=== PATIENT | female | born 1970 | race Caucasian/White ===

== ENCOUNTER → 2020-04-02 15:51 | Outpatient (CLI) | payer BC, SELFPAY ==
--- NOTE | ~2020-04-02 | MM_ITS ---
EXAMINATION: MM screening [facility] BI [facility] HISTORY: Screening TECHNIQUE: Craniocaudal and mediolateral oblique 3-D tomosynthesis images were obtained and synthetic 2-D images were generated. CAD analysis was submitted and interpreted. COMPARISON: Comparison to multiple prior studies sequentially, with oldest reviewed study dated 12/19. BREAST PARENCHYMAL COMPOSITION: The breasts are heterogeneously dense, which may obscure small masses . FINDINGS: Stable benign-appearing mass upper inner quadrant of the right breast. There is no evidence of suspicious mass, calcification, or architectural distortion to suggest malignancy in either breas t. There has been no suspicious interval change. IMPRESSION: 1. No mammographic evidence of malignancy. 2. Recommend routine screening mammography in one year. BI-RADS Category 2: Benign finding(s). Reviewed, dictated and finalized at location A.
== END ==
PROVIDERS: PCP Family Medicine
DX: Z12.31 Encounter for screening mammogram for malignant neoplasm of breast (principal)
CPT/HCPCS: 77063; 77067

== ENCOUNTER → 2021-04-02 14:13 | Outpatient (CLI) | payer BC, SELFPAY ==
--- NOTE | ~2021-04-02 | MM_ITS ---
EXAMINATION: MM screening [facility] HISTORY: Screening TECHNIQUE: Craniocaudal and mediolateral oblique 3-D tomosynthesis images were obtained and synthetic 2-D images were generated. CAD analysis was submitted and interpreted. COMPARISON: Comparison to multiple prior studies sequentially, with oldest reviewed study dated 12/22. BREAST PARENCHYMAL COMPOSITION: The breasts are extremely dense, which lowers the sensitivity of mamm ography. FINDINGS: There is no evidence of suspicious mass, calcification, or architectural distortion to sugg est malignancy in either breast. There has been no suspicious interval change. IMPRESSION: 1. No mammographic evidence of malignancy. 2. Recommend routine screening mammography in one year. BI-RADS Category 1: Negative Reviewed, dictated and finalized at location A.
== END ==
PROVIDERS: PCP Family Medicine
DX: Z12.31 Encounter for screening mammogram for malignant neoplasm of breast (principal)
CPT/HCPCS: 77063; 77067

== ENCOUNTER → 2021-09-24 14:44 | Outpatient (CLI) | payer BC, SELFPAY ==
--- NOTE | ~2021-09-24 | DEXA_ITS ---
Bone Density Report Name: SHAWN BAIG Age: 51 Sex: Female Ethnicity: White Date of : 1970 Indication: postmenopausal; screening for osteoporosis; Referring Provider: CATERINA CAMARGO Study: Bone densitometry was performed. Exam Date: September 24, 2021 Accession number: [id number] Bone Density: Region BMD T-score Z-score Classification AP Spine (L1-L4) 0.842 -1.9 -0.9 Osteopenia Femoral Neck (Left) 0.644 -1.9 -0.9 Osteopenia Total Hip (Left) 0.751 -1.6 -1.0 Osteopenia Femoral Neck (Right) 0.653 -1.8 -0.8 Osteopenia Total Hip (Right) 0.764 -1.5 -0.9 Osteopenia Total Hip Mean 0.758 -1.6 -1.0 Osteopenia World Health Organization criteria for BMD impression classify patients as: Normal (T-score at or above -1.0), Osteopenia (T-score between -1.0 and -2.5), or Osteoporosis (T-score at or below -2.5). 10-year Fracture Risk(1): Major Osteoporotic Fracture 5.7% Hip Fracture 0.7% Reported Risk Factors: [place] (), Neck BMD=0.644, BMI=20.2 (1) FRAX(R) Version 3.08. Fracture probability calculated for an untreated patient. Fracture probability may be lower if the patient has received treatment. Clinical Information Provided by Patient: Has used the following medications: Vitamin D Patient maximum height was 67 Menopause Age: 49 No regular weight bearing exercise Drinks caffeinated beverages Onset of menses at age 11 Number of children 2 Impression: The patient has low bone mass, based on the Total Spine T-score. The patient has an estimated ten-year risk of hip fracture of 0.7% and an estimated ten-year risk of major fracture of 5.7%, based on the WHO FRAX algorithm. Discussion: BONE DENSITY IS LOW AT ONE OR MORE SKELETAL SITES. This patient's lowest T-score is low at one or more skeletal sites. It meets the World Health Organization's (WHO) criteria for ?low bone mass? (T-score between -1.0 and -2.5). The patient's 10-year risk of fracture as calculated by FRAX is less than the threshold where pharmacological therapy is recommended by the National Osteoporosis Foundation (NOF). However, all treatment decisions require clinical judgment and consideration of individual patient factors, including patient preferences, comorbidities, previous drug use, risk factors not captured in the FRAX model (e.g., frailty, falls, vitamin D deficiency, increased bone turnover, interval significant decline in bone density) and possible under or overestimation of fracture risk by FRAX. The patient should follow a healthful lifestyle (good nutrition with adequate calcium and vitamin D, and appropriate weight-bearing exercise). Follow-Up: Consider repeating this study in 2 to 3 years to reassess this patient's status, or sooner if there is some new clinical indication. Reported by: [facility] on 09/24/2021 3:21:0
== END ==
PROVIDERS: PCP Family Medicine; Visit Provider Family Medicine
DX: Z78.0 Asymptomatic menopausal state (principal); M85.89 Other specified disorders of bone density and structure, multiple sites
CPT/HCPCS: 77080

== ENCOUNTER → 2022-04-23 11:48 | Outpatient (CLI) | payer BC, SELFPAY ==
--- NOTE | ~2022-04-23 | MM_ITS ---
EXAMINATION: MM screening [facility] HISTORY: Screening TECHNIQUE: Craniocaudal and mediolateral oblique 3-D tomosynthesis images were obtained and synthetic 2-D images were generated. CAD analysis was submitted and interpreted. COMPARISON: Comparison to multiple prior studies sequentially, with oldest reviewed study dated 11/2016. BREAST PARENCHYMAL COMPOSITION: The breasts are heterogeneously dense, which may obscure small masses FINDINGS: There is no evidence of suspicious mass, calcification, or architectural distortion to sugg est malignancy in either breast. There has been no suspicious interval change. IMPRESSION: 1. No mammographic evidence of malignancy. 2. Recommend routine screening mammography in one year. BI-RADS Category 1: Negative Reviewed, dictated and finalized at location A.
== END ==
PROVIDERS: PCP Family Medicine
DX: Z12.31 Encounter for screening mammogram for malignant neoplasm of breast (principal)
CPT/HCPCS: 77063; 77067

== ENCOUNTER → 2023-05-27 12:22 | Outpatient (CLI) | payer OTHER, SELFPAY ==
--- NOTE | ~2023-05-27 | MM_ITS ---
EXAMINATION: MM screening [facility] HISTORY: Screening mammogram TECHNIQUE: Craniocaudal and mediolateral oblique 3-D tomosynthesis images were obtained and synthetic 2-D images were generated. CAD analysis was submitted and interpreted. COMPARISON: 04/23/2022, 04/02/2021, 04/02/2020 bilateral screening mammogram examinations BREAST PARENCHYMAL COMPOSITION: The breasts are heterogeneously dense, which may obscure small masses . FINDINGS: There is no evidence of suspicious mass, calcification, or architectural distortion to sugg est malignancy in either breast. There has been no suspicious interval change. IMPRESSION: 1. No mammographic evidence of malignancy. 2. Recommend routine screening mammography in one year. BI-RADS Category 1: Negative Reviewed, dictated and finalized at location A.
== END ==
PROVIDERS: PCP Family Medicine
DX: Z12.31 Encounter for screening mammogram for malignant neoplasm of breast (principal)
CPT/HCPCS: 77063; 77067

== ENCOUNTER 2023-10-03 11:12 | Outpatient (CLI) | payer OTHER, SELFPAY ==
--- NOTE | ~2023-10-03 | US_ITS ---
EXAMINATION: US pelvic complete w TV DATE: 10/03/2023 11:43 INDICATION: Right lower quadrant pain TECHNIQUE: Multiple transabdominal and endovaginal sonographic images of the pelvis were obtained. COMPARISON: None. FINDINGS: The uterus measures 6.8 x 2.9 x 4.6 cm. The endometrial complex measures 6 mm. There is an 8 mm hypoechoic area abutting the endometrial complex in the posterior uterine body, likely a small f ibroid. Bowel gas obscures clear visualization of the ovaries. No definite adnexal abnormality is jono ntified. There is no free fluid in the pelvis. IMPRESSION: 1. No sonographic correlate for the patient's symptoms. Reviewed, dictated and finalized at location L. MERCE ANALYST
== END 2023-10-03 11:13 ==
PROVIDERS: PCP Family Medicine
DX: R10.31 Right lower quadrant pain (principal)
CPT/HCPCS: 76830; 76856

== ENCOUNTER 2023-10-06 05:49 | Day surgery (SDC) | payer OTHER, SELFPAY ==
[2023-08-17 10:03] VITALS: BMI 20.5
[2023-09-19 12:06] VITALS: BMI 20.7
--- NOTE | 2023-10-05 11:21 | P.PNAN_ITS ---
Anes - Initial Pre Proc Eval Procedure: Operation Date: 10/06/23 07:30 Proposed Procedures p Diagnostic Colonoscopy - Rudolph Black MD Date/Time: 10/05/23 11:21 Surgeon: Rudolph Black MD Pre Op Diagnosis: Personal History of Colonic Polyps Patient Data Age: 53 Gender: F Height: 1.7 m Weight: 60 kg Allergies Allergy/AdvReac Type Severity Reaction Status Date / Time No Known Allergies Allergy Verified 10/06/23 06:23 Home Medications Medication Instructions Recorded Confirmed Type cholecalciferol (vitamin D3) 10 10 mcg PO DAILY #90 caps 11/03/20 10/06/23 Rx mcg (400 unit) capsule sodium,potassium,mag sulfates 17.5 See Rx Instructions PO .COMPLEX 08/17/23 10/06/23 Rx gram-3.13 gram-1.6 gram oral soln #354 mL (Suprep Bowel Prep Kit) simvastatin 10 mg tablet 10 mg PO DAILY #90 tabs 10/03/23 10/06/23 Rx Patient hx anesthesia problems: none Family hx anesthesia problems: none Results Review: All pre-operative results and documents have been reviewed as part of the pre- operative evaluation. [facility] Past Medical History Medical History Mixed hyperlipidemia Osteopenia Vitamin D deficiency Family History Family History Father Hypertension Grandparent Hypertension Family history of coronary artery disease Family history of malignant neoplasm of urinary bladder Diabetes mellitus Mother Family history of type 2 diabetes mellitus Other Family history of elevated blood lipids Family history of glaucoma Social History Social History Smoking status: Never smoker Second hand tobacco smoke exposure: No Alcohol intake: current Substance use: never Substance use type: does not use Lack of Transportation: No Lack of Food: Never True Current Housing: I Have Housing Concerned About Future Housing: No Difficulty Paying Gas/Electric Bills: No Difficulty Paying for Meds: No Currently Unemployed: No Difficulty w/ Childcare or Family Care: No Living arrangements: with family Gender identity (if verbalized by the patient): Female Sexual Orientation (if Verbalized by the Patient): Straight or Heterosexual Spiritual care concerns: No Agree to blood products: Yes Anes - Eval Final PreProcedure Day of Procedure 10/05/23 11:21 Patient weight: normal Heart: regular rate and rhythm Lungs: clear to auscultation Airway: Mallampati scale class II Neurological: alert and oriented Last oral intake: >/= 8 hours ASA classification: II Emergent: no Anesthetic plan: proceed Anesthesia type and monitoring: general GIVS and standard monitoring Results Review: All pre-operative results and documents have been reviewed as part of the pre- operative evaluation. Informed Consent: The patient's anesthetic plan and its attendant risks and benefits were discussed with the patient/family/POA. Questions were solicited and answers provided to the satisfaction of the patient/family/POA.
[2023-10-06 06:25] VITALS: BP 98/72; PULSE 86; RESP 20; TEMP 36.7; O2SAT 98
[2023-10-06] MEDS: LACTATED RINGERS 1,000 ML 150 ML IV CONT (06:34)
--- NOTE | 2023-10-06 07:10 | PM.HPGS ---
History of Present Illness History of Present Illness Consent: Risks, benefits, and alternatives have been discussed and questions answered. Patient agrees to proceed with procedure. Chief complaint: Personal History of Colonic Polyps Narrative: Maryanne Hill is a 53 year old female presents for screening colonoscopy. Patient has a history of colonoscopy in 2019 that revealed a benign hyperplastic polyp. Patient was referred follow-up colonoscopy in now after patient reports that her current weight appetite and bowel movements are normal. Patient denies abdominal pain. She has had no bleeding. Family history is noncontributory. Review of Systems Review of Systems: Review of systems is noncontributory. [facility] Past Medical History Medical History Mixed hyperlipidemia Osteopenia Vitamin D deficiency Family History Family History Father Hypertension Grandparent Hypertension Family history of coronary artery disease Family history of malignant neoplasm of urinary bladder Diabetes mellitus Mother Family history of type 2 diabetes mellitus Other Family history of elevated blood lipids Family history of glaucoma Social History Social History Smoking status: Never smoker Second hand tobacco smoke exposure: No Alcohol intake: current Substance use: never Substance use type: does not use Lack of Transportation: No Lack of Food: Never True Current Housing: I Have Housing Concerned About Future Housing: No Difficulty Paying Gas/Electric Bills: No Difficulty Paying for Meds: No Currently Unemployed: No Difficulty w/ Childcare or Family Care: No Living arrangements: with family Gender identity (if verbalized by the patient): Female Sexual Orientation (if Verbalized by the Patient): Straight or Heterosexual Spiritual care concerns: No Agree to blood products: Yes Meds Home Medications and Allergies Home Medications Medication Instructions Recorded Confirmed Type cholecalciferol (vitamin D3) 10 10 mcg PO DAILY #90 caps 11/03/20 10/06/23 Rx mcg (400 unit) capsule sodium,potassium,mag sulfates 17.5 See Rx Instructions PO .COMPLEX 08/17/23 10/06/23 Rx gram-3.13 gram-1.6 gram oral soln #354 mL (Suprep Bowel Prep Kit) simvastatin 10 mg tablet 10 mg PO DAILY #90 tabs 02/05/24 02/08/24 Rx Allergies Allergy/AdvReac Type Severity Reaction Status Date / Time No Known Allergies Allergy Verified 10/06/23 06:23 Vital Signs Vital Signs - 24 hr 10/06/23 06:25 Temperature 98.1 F Pulse Rate 86 Respiratory Rate 20 Blood Pressure 98/72 L Pulse Oximetry 98 Oxygen Delivery Room Air Exam Narrative: Physical exam reveals patient to be alert. Vital signs stable. HEENT exam is unremarkable. Patient is anicteric. Lungs are clear to auscultation and percussion. Heart without murmur. Abdomen bowel sounds are present soft nontender with no organomegaly. Digital external rectal exam is normal. Assessment and Plan Assessment and plan (1) Encounter for screening colonoscopy: Code(s): Z12.11 - Encounter for screening for malignant neoplasm of colon Status: Acute Assessment and Plan: Patient was found to have a benign hyperplastic polyp in 2019. Surveillance colonoscopy was recommended. Further recommendations may be given after endoscopy.
[2023-10-06 07:43] VITALS: BP 86/52; PULSE 72; RESP 14; O2SAT 99
[2023-10-06 07:53] VITALS: BP 94/54; PULSE 70; RESP 14; O2SAT 100
[2023-10-06 08:03] VITALS: BP 92/53; PULSE 77; RESP 14; O2SAT 100
[2023-10-06 08:08] VITALS: BP 96/58
[2023-10-06 08:14] VITALS: BP 98/64
--- NOTE | 2023-10-06 08:21 | WPDANESPN ---
Anes - Prog Note Post-Op Date/Time: 10/06/23 08:21 Cardiovascular status: normal Respiratory status: normal Airway patency: baseline Mental status: baseline Post-Op hydration status: normal Vital Signs: Last Vital Signs Temp 36.7 C 10/06/23 06:25 Pulse 77 10/06/23 08:03 Resp 14 10/06/23 08:03 BP 98/64 L 10/06/23 08:14 Pulse Ox 100 10/06/23 08:03 O2 Del Method Room Air 10/06/23 08:03 Pain Score (VAS): 0 I/O: Intake & Output 10/05/23 10/06/23 10/06/23 23:59 07:59 15:59 Intake Total 600 400 Balance 600 400 Patient Feedback: Patient satisfied with anesthetic care.
--- NOTE | 2023-10-06 08:22 | WPDANESPN ---
Anes - Prog Note Post-Op Date/Time: 10/06/23 08:22 Cardiovascular status: normal Respiratory status: normal Airway patency: baseline Mental status: baseline Post-Op hydration status: normal Vital Signs: Last Vital Signs Temp 36.7 C 10/06/23 06:25 Pulse 77 10/06/23 08:03 Resp 14 10/06/23 08:03 BP 98/64 L 10/06/23 08:14 Pulse Ox 100 10/06/23 08:03 O2 Del Method Room Air 10/06/23 08:03 Pain Score (VAS): 0 I/O: Intake & Output 10/05/23 10/06/23 10/06/23 23:59 07:59 15:59 Intake Total 600 400 Balance 600 400 Patient Feedback: Patient satisfied with anesthetic care.
== END 2023-10-06 08:22 | disposition home or self-care (01) ==
PROVIDERS: PCP Family Medicine; Visit Provider Internal Medicine Gastroenterology
PROC: 0DJD8ZZ Inspection of Lower Intestinal Tract, Via Natural or Artificial Opening Endoscopic (ICD-10-PCS; CPT 45378; principal; 2023-10-06 07:30)
DX: Z12.11 Encounter for screening for malignant neoplasm of colon (principal); Z86.010 Personal history of colon polyps
CPT/HCPCS: 45378

== ENCOUNTER 2024-07-25 15:11 | Outpatient (CLI) | payer OTHER, SELFPAY ==
--- NOTE | ~2024-07-25 | MM_ITS ---
EXAMINATION: MM screening [facility] HISTORY: Screening TECHNIQUE: Craniocaudal and mediolateral oblique 3-D tomosynthesis images were obtained and synthetic 2-D images were generated. CAD analysis was submitted and interpreted. COMPARISON: Comparison to multiple prior studies sequentially, with oldest reviewed study dated 03/09. BREAST PARENCHYMAL COMPOSITION: Dense: The breasts are extremely dense, which lowers the sensitivity of mammography. FINDINGS: There is no evidence of suspicious mass, calcification, or architectural distortion to sugg est malignancy in either breast. There has been no suspicious interval change. IMPRESSION: 1. No mammographic evidence of malignancy. 2. Recommend routine screening mammography in one year. BI-RADS Category 1: Negative Reviewed, dictated and finalized at location B. R
== END 2024-07-25 15:12 | disposition home or self-care (01) ==
LOC: MICIMG 15:13
PROVIDERS: PCP Family Medicine
DX: Z12.31 Encounter for screening mammogram for malignant neoplasm of breast (principal)
CPT/HCPCS: 77063; 77067